=== PATIENT | female | born 1975 | race Caucasian/White ===

== ENCOUNTER 2024-02-11 11:32 | Emergency (ER) | payer MEDICAID ==
[~2024-02-11] VITALS: Ht 152.4 cm; Wt 79.1 kg
[2024-02-11 11:36] VITALS: BP 115/71; PULSE 81; RESP 17; O2SAT 100
[2024-02-11] MEDS ORDERED: DOXY-225 PO (12:20)
[2024-02-11] MEDS ORDERED: ALBU18HF2 INH (12:20)
[2024-02-11] MEDS ORDERED: GUAI120015 PO (12:20)
[2024-02-11 12:36] VITALS: TEMP 98.9
== END 2024-02-11 12:38 | disposition home or self-care (01) ==
LOC: ER 11:33
DX: J32.9 Chronic sinusitis, unspecified (principal); Z88.0 Allergy status to penicillin; Z88.2 Allergy status to sulfonamides
CPT/HCPCS: 99283

== ENCOUNTER 2024-06-30 09:01 | Emergency (ER) | payer MEDICAID ==
[~2024-06-30] VITALS: Ht 152.4 cm; Wt 78.9 kg
[~2024-06-30 09:01] MED LIST: ALBU18HF2 INH; GUAI120015 PO
[2024-06-30 09:05] VITALS: BP 166/93; PULSE 77; O2SAT 99
--- NOTE | 2024-06-30 09:40 | Physician Documentation ---
History of Present Illness ~ Chief Complaint: Cold, cough & congestion Stated Complaint: UPPER RESPIRATORY INFEC Time Seen by MD: 09:40 HPI This is a 48-year-old female who presents to the emergency department for lack of improvement of her sinus infection symptoms. She reports that she has just completed a Z-Srinivasan and her symptoms persist. She has had fevers up to 102 in the last couple days. She denies any shortness of breath or chest pain. She was had no nausea, vomiting, diarrhea, abdominal pain. Medication Reconciliation Allergies: Coded Allergies: Penicillins (Verified Allergy, Unknown, SOB ,RAPID HEART RATE IN 300 ,HIVES, 02/11/24) Sulfa (Sulfonamide Antibiotics) (Verified Allergy, Unknown, TOUNGUE SWELLING AND TACHYCARDIA., 02/11/24) lansoprazole (Verified Allergy, Unknown, ANAPHALASIS, 02/11/24) moxifloxacin (Verified Allergy, Unknown, rash ,rapid HR., 02/11/24) Scheduled Doxycycline Monohydrate (Doxycycline Monohydrate), 1 CAP PO Q12H Guaifenesin (Mucinex), 1 TAB PO Q12H Scheduled PRN Albuterol Sulfate (Ventolin Hfa), 2 PUFFS INH Q4HPRN PRN for wheezing Past Medical History Past Medical History: No Pertinent History Past Surgical History: noncontributory Review of Systems ROS As stated above in the HPI, otherwise all systems are reviewed and negative. Physical Exam Vital Signs: Temperature: 98.6, Source: Oral, Heart Rate: 77, Respiratory Rate: 16, BP: 166/93, Pulse Oximetry: 99, Weight: 78.900 Oxygen Flow Rate: 0 Physical Exam General: Alert, no apparent distress. HEENT: PERRL, EOMI, no injection, moist mucous membranes. Clear ear canals bilat. Erythematous TMs bilat. Neck: Full range of motion. Respiratory: Lungs clear, no respiratory distress. Chest: No accessory muscle use. Cardiovascular: Regular rate and rhythm, no murmurs. Gastrointestinal: Soft, nontender, nondistended. Bowels sounds present. Extremities: Normal range of motion, no deformity. Neurologic: Oriented x4. Psychiatric: Normal mood and affect. Skin: Normal color, warm and dry. No edema, no ecchymosis. Progress Results/Orders Results/Orders Vital Signs 06/30/24 06/30/24 09:05 09:53 Temp 98.6 Pulse 77 Resp 16 20 B/P (MAP) 166/93 Pulse Ox 99 O2 Flow Rate 0 EKG/XRAY/CT/US/VASC/MRI Chest X-Ray : Additional Comments DIAGNOSTIC RADIOLOGY Patient: RICK AC Medical Record: [id number] [facility] : 1975, Age: 48 Sex: Female Location: ER Patient Status: [facility] ER Service Date/Time: 06/30/24913 Ordering Physician: LEEANNA GABRIEL MD Exam: CHEST,SINGLE VIEW CLINICAL INFORMATION: Pneumonia. TECHNIQUE: Single AP portable chest radiograph was obtained. COMPARISON: None FINDINGS: Lungs: Clear. Cardiac: Heart size is within normal limits. Pulmonary vasculature: Unremarkable. Mediastinum/daniel: Unremarkable. Bones: No acute osseous abnormality identified. Other: No other significant findings. IMPRESSION: No evidence of acute disease in the chest. Electronically Signed by:IVAN NERI DO Date & Time: 06/30/24938 Dictated by: IVAN NERI DO Dictation date and time: 06/30/24913 Primary Care Provider: NO PRIMARY CARE PROVIDER cc: LEEANNA GABRIEL MD ~ Medical Decision Making Differential Diagnosis Suspect inadequate treatment for sinus infection along with early bilateral otitis media. She will be changed to doxycycline. She was encouraged to follow up with your primary care provider return if worse. No emergent condition was identified during her evaluation. She was appropriate for discharge home and outpatient care. Departure Time of Disposition: 10:13 Disposition: 01 HOME / SELF CARE / HOMELESS Impression: Primary Impression: Sinusitis Condition: Stable Discharge Instructions: Sinus Infection, Adult Additional Instructions: Take full course of doxycycline as prescribed. Drink plenty of fluids. Take plain Mucinex. Return if worse, otherwise follow up with your primary care provider. Referrals: NO PRIMARY CARE PROVIDER (PCP) Prescriptions Doxycycline Monohydrate (Doxycycline Monohydrate) 100 Mg Capsule 1 CAP PO Q12H for 7 Days, #14 CAP Prov: MADISYN KELLEY [facility] NURSE 06/30/24 Education Educated: Patient, Family Educated regarding: diagnosis, treatment, prognosis, need for follow up Signature Scribe Signature: no scribe Attestation: The note accurately reflects work and decisions made by me.Madisyn Adams NP 06/30/24 10:20 MADISYN KELLEY NP Jun 30, 2024 09:40
[2024-06-30 09:53] VITALS: RESP 20
[2024-06-30] MEDS ORDERED: DOXY-347 PO (10:14)
[2024-06-30 10:28] VITALS: TEMP 98.6
== END 2024-06-30 10:30 | disposition home or self-care (01) ==
LOC: ER 09:02
DX: J32.9 Chronic sinusitis, unspecified (principal); Z88.2 Allergy status to sulfonamides; Z88.0 Allergy status to penicillin; Z79.899 Other long term (current) drug therapy; Z88.8 Allergy status to other drugs, medicaments and biological substances
CPT/HCPCS: 71045; 99283